=== PATIENT | female | born 1985 | race Caucasian/White ===

== ENCOUNTER 2025-06-18 08:01 | Emergency (ER) | payer SELFPAY ==
[2025-06-18 08:02] VITALS: BP 166/96; PULSE 97; RESP 18; TEMP 36.6; O2SAT 99; BMI 42.1
[2025-06-18 08:33] VITALS: O2SAT 100
--- NOTE | 2025-06-18 08:33 | EKG12_ITS ---
Test Reason : CP Blood Pressure : */* mmHG Vent. Rate : 93 BPM Atrial Rate : 93 BPM P-R Int : 166 ms QRS Dur : 92 ms QT Int : 336 ms P-R-T Axes : 63 37 61 degrees QTcB Int : 417 ms Normal sinus rhythm Normal ECG Confirmed by CHRISTIE WOLF, ELODIA ([id number]), material expeditor GEORGIE MORRISON ([id number]) on 06/20/2025 7:28:33 AM Referred By: Confirmed By: ELODIA SORIANO MD
--- NOTE | 2025-06-18 08:34 | EX.ED.DYSGE1 ---
HPI History of Present Illness Chief Complaint: Chest Pain Informant: patient Narrative Narrative: Patient is a 40-year-old female history of SVT (status post ablation) and hypothyroidism (on methimazole and propranolol however notes that she does not take propranolol every day) presenting for chest discomfort. Patient states that she is visiting from [place] for a wedding and they drove down yesterday. While she was in the car she had an episode where she felt this rushing sensation go down to her legs into her bilateral arms. She knows she had some mild tingling in her jaw and she thinks it was just the left side. She felt mildly short of breath and had a mild discomfort in the right side of her chest. She states her heart failure is beating hard and fast and almost reminds her of her prior episodes of SVT. She turned the air on colds and drink some cold water and try to feel better. States the whole episode lasted about 5 minutes. She did feel mildly lightheaded with this. She denies any sweating with it. Denies feeling she is going to pass out. Notes this morning she felt nauseous and had a discomfort in the center of her chest over her sternum. States it feels like a pressure and ache but states is not painful. She felt a little nauseous this morning. Denies any abdominal pain or change in her bowel movements. Has had some urinary frequency. States she has had a bit tingling on the tip of her tongue as well as her hands and her feet today. Notes she has been very worried since this episode happened and came in for further evaluation. Notes that she has had a hard time with her thyroid level and her most recent labs shows continued to show a low TSH and an elevation of her T4. Her medication was increased slightly (was about a week or 2 ago). She denies any history of heart disease. She denies any concern for as she has an IUD. She denies any history of DVT or PE. Denies any swelling of her legs. No other complaints or concerns reported at this time. [facility] Medical History Hyperthyroidism Graves disease SVT (supraventricular tachycardia) Allergy/AdvReac Type Severity Reaction Status Date / Time Penicillins Allergy unknown Verified 06/18/25 08:04 Surgical History Previous section History of cardiac ablation for atrial fibrillation Social History Smoking Status: Former smoker ROS ROS ED Constitutional Constitutional ED: Denies fever(s) or sweats Eyes Eyes: Denies change in vision ENT ENT ED: Reports other Details: Currently reports dry mouth Cardiovascular Cardiovascular: Reports chest pain and palpitations; Denies racing heartbeat Respiratory/Chest Respiratory/Chest: Reports dyspnea; Denies cough Gastrointestinal Gastrointestinal: Reports nausea; Denies abdominal pain, diarrhea or vomiting Genitourinary Genitourinary ED: Reports urinary frequency; Denies dysuria or hematuria Musculoskeletal Musculoskeletal: Denies arthralgias or myalgias Integumentary Denies rash Neurologic Neurologic: Reports paresthesias; Denies weakness Psychiatric Psychiatric: Reports anxiety Hematologic/Lymphatic Hematologic/Lymphatic: Denies easy bleeding or easy bruising EXAM Physical Exam Const Vital Signs: 06/18/25 08:02 06/18/25 08:10 06/18/25 08:33 Temperature 98 F Temperature Source Oral Pulse Rate 97 Respiratory Rate 18 Respiratory Effort Normal Short of Breath Blood Pressure 166/96 H Blood Pressure Mean 119 Pulse Ox 99 100 Oxygen Delivery Method Room Air Room Air 06/18/25 09:02 06/18/25 10:00 Temperature Temperature Source Pulse Rate 101 H 80 Respiratory Rate 15 21 H Respiratory Effort Blood Pressure 139/74 H Blood Pressure Mean 95 Pulse Ox 96 95 Oxygen Delivery Method Room Air Room Air Positive well nourished and well developed General Appearance ED: well developed and NAD HEENT HEENT Narrative: Tacky mucosal membranes Eyes PERRL Eyes Narrative: No exophthalmos present Neck supple and no JVD Chest Wall inspection of chest normal and palpation of chest normal Resp normal respiratory effort and clear to auscultation bilaterally Cardio regular rate, regular rhythm and no murmurs Cardio Narrative: 2+ radial and PT pulses GI normal to inspection, nondistended, normoactive bowel sounds and non-tender Extremity normal to inspection General Extremety ED: Negative for edema General Extremity: Negative for edema Neuro oriented x3 Sensorium / Orientation: alert Motor Exam: Negative for general weakness Psych mental status grossly normal Mood & Affect: Negative for tearful Skin no rashes or lesions noted and no wounds MDM MDM MDM Narrative Medical decision making narrative: Patient valuated for episode of warmth to her body yesterday with pounding heart rate. She then had some chest discomfort today. Does have a history of hyperthyroidism. She is visiting from out of town. Differential includes arrhythmia, ACS ( less likely given her HPI), thyroid dysfunction, dehydration, AGA, electrolyte derangement and pulmonary emboli. Overall she is well-appearing. I will obtain EKG, troponin, D-dimer, T3/T4 (she had low TSH quite recently that she showed me on her phone/MyChart so I do not think a TSH is indicated) and urinalysis given her urinary frequency. Will determine modality of chest imaging based off D-dimer. Chest x-ray read by myself as well as radiology does not show any acute process. Workup largely unremarkable. D-dimer negative. High sensitive troponin less than 6. Free T4 and T3 are elevated but downtrending compared to her prior labs. She is given a copy of her lab work for follow-up when she returns to [place]. Counseled that the cause of her symptoms is not clear at this time I do think she stable to be discharged home and follow-up outpatient. She is comfortable with this plan of care. Discharged home in stable condition peer Lab Data Attestation: I reviewed the patient's lab results. Labs: Laboratory Results - last 24 hr 06/18/25 06/18/25 08:12 09:09 WBC 5.8 RBC 4.94 Hgb 12.8 Hct 38.7 MCV 78.3 L MCH 25.9 L MCHC 33.1 RDW Std Deviation 37.6 RDW Coeff of Phoebe 13.2 Plt Count 287 MPV 9.8 Immature Gran % (Auto) 0.300 Neut % (Auto) 58.5 Lymph % (Auto) 33.4 Cass % (Auto) 7.6 Eos % (Auto) 0.0 Baso % (Auto) 0.2 Absolute Neuts (auto) 3.4 Absolute Lymphs (auto) 1.94 Nucleated RBC % 0 D-Dimer Quant (PE/DVT) < 0.27 L Sodium 138 Potassium 3.9 Chloride 105 Carbon Dioxide 22.4 Anion Gap 11 BUN 11 Creatinine 0.64 L Estim Creat Clear Calc 139.81 Est GFR (MDRD) Non-Af 113 BUN/Creatinine Ratio 17.3 Glucose 110 H Calcium 9.3 Magnesium 2.2 Troponin T High Sens < 6 Free T4 2.00 H Free T3 pg/dL 5.3 H Urine Color Yellow Urine Clarity Sl. Cloudy Urine pH 7.0 Ur Specific [place] 1.010 Urine Protein 15 H Urine Glucose (UA) Normal Urine Ketones Negative Urine Occult Blood 10 H Urine Nitrite Negative Urine Bilirubin Negative Urine Urobilinogen Normal Ur Leukocyte Esterase Negative Urine RBC 0-5 SEEN Urine WBC 0-5 SEEN Ur Squamous Epith Cells 0 SEEN Urine Bacteria 0 SEEN Urine Mucus 0 SEEN Radiography Diagnostic Testing: Clinical Impression(s) from Imaging Studies Chest X-Ray 06/18/25 09:15 IMPRESSION: No acute cardiopulmonary process. Reading Location: [facility] Rhythm Strip Rhythm Strip: Sinus Rhythm Rate: 93 Ectopy: None EKG Initial EKG: Attestation: I personally reviewed and interpreted this EKG as follows: Interpretation: Sinus Rhythm Comments: Normal sinus rhythm at a rate of 93 bpm Normal axis Normal intervals Normal ST segments Prior EKG tracings: not available for review Prior: No Prior Discharge Plan Triage Chief Complaint: Chest Pain ED Provider: Lary Peñaloza Dx/Rx/DC Orders Clinical Impression: Hyperthyroidism, Chest pain of uncertain etiology Instructions: ED Chest Pain, Uncertain Cause Primary Care Provider: Jarek Garza,Out of Referrals: Jarek Garza,Out of [Primary Care Provider] - Activity Restrictions/Additional Instructions: Your workup today was very reassuring with no signs of electrolyte abnormalities, anemia, acute thyroid dysfunction, blood clots (pulmonary emboli or DVT) or acute cardiac problem/abnormal heart rhythms. Please continue to follow-up outpatient with your doctor when you return to [place]. Print Language: Swazi Disposition Disposition: Home, Self Care
[2025-06-18 08:43] LABS: Hematocrit 38.7 % (37-47); Hemoglobin 12.8 g/dL (12.0-15.0); Immature Granulocytes Count 0.020 X10^3/uL (0.0-0.0); Mean Corp Hgb Conc 33.1 g/dL (32-36); Mean Corpuscular Volume 78.3 fL (81-99); Mean Platelet Vol. 9.8 fl (6.2-12.0); NRBC Flagged by Analyzer 0 % (0-5); Platelet Count 287 K/mm3 (150-450); RBC Distribution Width CV 13.2 % (11.6-14.6); RBC Distribution Width SD 37.6 fl (35.1-43.9); Red Blood Count 4.94 M/mm3 (4.2-5.4); White Blood Count 5.8 K/mm3 (4.4-11.0)
[2025-06-18 08:55] LABS: D-Dimer Quantitative (DVT/PE) < 0.27 FEU/ug/m (0.27-0.49)
[2025-06-18 09:02] VITALS: BP 139/74; PULSE 101; RESP 15; O2SAT 96
[2025-06-18 09:14] LABS: Mucous, Urine 0 SEEN /hpf (<or=2+); Squamous Epithelial Cells - UA 0 SEEN /hpf (5-10)
--- NOTE | 2025-06-18 09:15 | RAD_ITS ---
EXAM: XR Chest, 2 Views CLINICAL INDICATION: CHEST PAIN TECHNIQUE: Frontal and lateral views of the chest. COMPARISON: No relevant prior studies available. FINDINGS: LUNGS AND PLEURAL SPACES: Unremarkable. No consolidation. No pneumothorax. HEART: Unremarkable. No cardiomegaly. MEDIASTINUM: Unremarkable. Normal mediastinal contour. BONES/JOINTS: Unremarkable. No acute fracture. RAD/Chest PA and Lateral IMPRESSION: No acute cardiopulmonary process. Reading Location: [id number]
[2025-06-18 09:17] LABS: Color, Urine Yellow (Yellow); Glucose, Dipstick Normal (Normal); Ketone-Dipstick Negative (Negative); Leukocyte Esterase-Dipstick Negative /ul (Negative); Nitrite-Dipstick Negative (Negative); Occult Blood-Urine 10 /ul (Negative); Protein-Dipstick 15 mg/dl (Negative); Specific Gravity, Urine 1.010 (1.002-1.030); Urine Bilirubin Dipstick Negative (Negative)
[2025-06-18 09:25] LABS: Red Blood Cells-Urine 0-5 SEEN /hpf (0-5)
[2025-06-18 09:59] LABS: Troponin T High Sensitivity < 6 ng/L (<=14)
[2025-06-18 10:00] VITALS: PULSE 80; RESP 21; O2SAT 95
[2025-06-18 10:03] LABS: Anion Gap 11 (5-15); BUN 11 mg/dL (4-19); BUN/Creat Ratio 17.3 RATIO (10-20); Calcium,Total 9.3 mg/dL (7.6-11.0); Carbon Dioxide 22.4 mmol/L (21.0-32.0); Chloride 105 mmol/L (98-108); Estimated Creatinine Clearance 139.81 ml/min (50-250); Glucose 110 mg/dL (70-99); Magnesium 2.2 mg/dL (1.5-2.2); Potassium 3.9 mmol/L (3.3-5.1)
[2025-06-18 10:07] LABS: Free T3 5.3 pg/mL (2.18-3.98)
[2025-06-18 10:48] VITALS: BP 139/74; PULSE 80; RESP 21; TEMP 36.6; O2SAT 95
[2025-06-18 10:50] LABS: Troponin T High Sens 2 HR < 6 ng/L (<=14)
== END 2025-06-18 10:53 | disposition home or self-care (01) ==
PROVIDERS: Emergency Provider Emergency Medicine; Visit Provider Emergency Medicine
DX: E05.90 Thyrotoxicosis, unspecified without thyrotoxic crisis or storm (principal); R07.9 Chest pain, unspecified; Z87.891 Personal history of nicotine dependence; Z97.5 Presence of (intrauterine) contraceptive device; R06.00 Dyspnea, unspecified; R35.0 Frequency of micturition; R20.2 Paresthesia of skin; F41.9 Anxiety disorder, unspecified
CPT/HCPCS: 71046; 80048; 81001; 83735; 84439; 84481; 84484; 85025; 85379; 93005; 99284; A4216